=== PATIENT | male | born 1950 | race Caucasian/White ===

== ENCOUNTER → 2017-08-07 | Outpatient (CLI) | payer OTHER ==
[2017-08-08 14:07] LABS: Protein, Urine Quantitative 22.6 mg/dL (0.0-11.9)
[2017-08-08 14:09] LABS: Microalbumin, Urine Quant. 8.85 mg/L (0.000-20.000)
== END ==
LOC: LAB SHORT 12:05 → LAB 12:05 → LAB SHORT 08-08 12:05
PROVIDERS: Internal Medicine Nephrology
DX: N18.3 Chronic kidney disease, stage 3 (moderate) (principal); D63.1 Anemia in chronic kidney disease; R80.9 Proteinuria, unspecified
CPT/HCPCS: 81050; 82043; 84156

== ENCOUNTER 2021-09-09 15:58 | Emergency (ER) | payer OTHER ==
[~2021-09-09] VITALS: Ht 170.2 cm; Wt 81.7 kg
[2021-09-09] MEDS ORDERED: Percocet 5-3251 EACH PO (17:26)
== END 2021-09-09 17:55 | disposition home or self-care (01) ==
LOC: ER 15:58
DX: S42.212A Unspecified displaced fracture of surgical neck of left humerus, initial encounter for closed fracture (principal); I10 Essential (primary) hypertension; W01.0XXA Fall on same level from slipping, tripping and stumbling without subsequent striking against object, initial encounter; Y92.9 Unspecified place or not applicable
CPT/HCPCS: 73030; A9270